=== PATIENT | male | born 1965 ===

== ENCOUNTER 2016-12-28 13:19 | Emergency (ER) | payer SELFPAY ==
[2016-12-28] MEDS ORDERED: CELEXA20 M2 PO (13:21)
[2016-12-28] MEDS ORDERED: ZESTORETIC 20-1 EAC3 PO (13:22)
[2016-12-28] MEDS ORDERED: LISINOPRIL-HCT1 EAC2 PO (13:41)
[2016-12-28] MEDS ORDERED: LISINOPRIL-HCT1 EAC1 PO (14:01)
== END 2016-12-28 14:10 ==
LOC: EDMED 13:19
DX: K40.90 Unilateral inguinal hernia, without obstruction or gangrene, not specified as recurrent (principal); I10 Essential (primary) hypertension; F17.200 Nicotine dependence, unspecified, uncomplicated; Z88.1 Allergy status to other antibiotic agents